=== PATIENT | female | born 1965 | race American Indian/Alaskan Native ===

== ENCOUNTER 2019-10-22 08:00 | Outpatient (CLI) | payer BC, OTHER ==
--- NOTE | 2019-10-22 16:37 | XRAY Report ---
Reason: RIGHT HIP PAIN Procedure Date: 10/22/2019 Accession Number: [id number] / [id number] Procedure: WCP - Hip 1 View RT CPT Code: Final Report FULL RESULT: PROCEDURE: Hip 1 View RT INDICATIONS: RIGHT HIP PAIN TECHNIQUE: 2 views of the hip were acquired. COMPARISON: None FINDINGS: Bones: No fractures or dislocations. No suspicious bony lesions. The visualized pelvic ring appears intact. Mild periarticular osteophyte formation at the bilateral hip joints. Soft tissues: No suspicious soft tissue calcifications or masses. IMPRESSION: Bilateral hip osteoarthritis. No acute fracture. No osseous lesion. If symptoms and/or clinical suspicion for pathology continue, further assessment with repeat plain films, or advanced imaging (e.g., CT, MRI, or bone scan) is recommended for further assessment. Reviewed by: Marcelle Paniagua MD on 10/22/2019 4:36 PM PDT Approved by: Marcelle Paniagua MD on 10/22/2019 4:36 PM PDT Station ID: [id number]
== END 2019-10-22 23:59 | disposition home or self-care (01) ==
LOC: DI.WCP 08:00
PROVIDERS: ATTEND Nurse Practitioner Family
DX: M16.6 Other bilateral secondary osteoarthritis of hip (principal)

== ENCOUNTER 2022-11-04 10:39 | Emergency (ER) | payer OTHER ==
--- NOTE | 2022-11-04 11:30 | ED Physician Documentation ---
PD HPI ABD PAIN - Stated complaint Stated Complaint: ABD PX, NAUSEA, DIARRHEA, - Chief complaint Chief Complaint: Abd Pain - History of Present Illness Quality: Cramping Location: LLQ Improved by: Meds Worsened by: Eating, Palpation Associated symptoms: Nausea, Diarrhea, Constipation Similar symptoms before: Diagnosis - Additional information Additional information: This is a 56-year-old female with a past medical history of recurrent diverticulitis with plan for colon resection in November at [facility]. She presents today with left lower quadrant pain and cramping and bloating along with nausea, diarrhea and constipation. This is similar to prior episodes of di verticulitis. She denies any known fever though felt chilled a few days ago, no cough or URI symptoms, no chest pain or difficulty breathing. She has no dysuria urgency or frequency. She states that her doctor in [facility] where she came from prior to coming up here had given her a prescription for Augmentin to use in the event of a flare of her diverticulitis However she left these medications at home on accident. She has been taking Tylenol, and also takes as needed Zofran which she has at home. Symptoms today feel exactly the same as prior diverticulitis flares. The patient has not had any colon abscesses in the past and has not had any other surgeries on the colon. She has had a Hysterectomy But still has both ovaries, and has her gallbladder and appendix. PD PAST MEDICAL HISTORY - Past Medical History Past Medical History: Yes Cardiovascular: High cholesterol Respiratory: Asthma Neuro: Migraines Endocrine/Autoimmune: None GI: Diverticulitis [employer]INCIPAL: None : None HEENT: None Psych: Depression Musculoskeletal: Osteoarthritis, Rheumatoid arthritis Derm: None - Past Surgical History Past Surgical History: Yes Ortho: Shoulder arthroplasty, Spine surgery, Other /[employer]IPAL: Hysterectomy - Present Medications Home Medications: Ambulatory Orders Medication Instructions Recorded Confirmed Amox/Clav 875/125 [Augmentin 1 tablet PO Q12H 7 Days #14 tablet 11/04/22 875/125 Tab] Escitalopram Oxalate 20 mg PO DAILY 11/04/22 11/04/22 Nabumetone 750 mg PO BID 11/04/22 11/04/22 - Allergies Allergies/Adverse Reactions: Allergies Allergy/AdvReac Type Severity Reaction Status Date / Time codeine AdvReac Nausea Verified 11/04/22 10:48 - Social History Does the pt smoke?: No Smoking Status: Former smoker Does the pt drink ETOH?: Yes Does the pt have substance abuse?: Yes Substance Use and Type: Marijuana - Immunizations Immunizations are current?: Yes PD ED PE NORMAL - Vitals Vital signs reviewed: Yes - General General: Alert and oriented X 3, No acute distress, Well developed/nourished - HEENT HEENT: Atraumatic, Pharynx benign - Cardiac Cardiac: RRR, No murmur - Respiratory Respiratory: No respiratory distress, Clear bilaterally - Abdomen Abdomen: Normal bowel sounds, Soft, Non distended, No organomegaly, Other (Left lower quadrant tenderness without guarding) - Derm Derm: Normal color, Warm and dry - Extremities Extremities: No deformity, No tenderness to palpate, Normal ROM s pain - Neuro Neuro: Alert and oriented X 3 Eye Opening: Spontaneous Motor: Obeys Commands Verbal: Oriented GCS Score: 15 - Psych Psych: Normal mood, Normal affect Results - Vitals Vitals: Vital Signs - 24 hr 11/04/22 10:50 Temperature 36.7 C Heart Rate 79 Respiratory 18 Rate Blood Pressure 137/88 H O2 Saturation 99 Oxygen O2 Source Room air - Labs Labs: Laboratory Tests 11/04/22 11:05 WBC 6.6 RBC 4.04 L Hgb 13.0 Hct 37.2 MCV 92.1 MCH 32.2 H MCHC 34.9 RDW 12.7 Plt Count 282 MPV 8.9 Neut # (Auto) 4.8 Lymph # (Auto) 1.2 L [place] # (Auto) 0.4 Eos # (Auto) 0.1 Baso # (Auto) 0.0 Absolute Nucleated RBC 0.00 Nucleated RBC % 0.0 PD Medical Decision Making - ED course Complexity details: reviewed results, re-evaluated patient, considered differential, d/w patient, d/w family ED course: 56-year-old female with known history of recurrent diverticulitis presents with left lower quadrant pain, nausea, diarrhea and constipation, which is consistent with her prior bouts of diverticulitis. She is nontoxic-appearing with stable vital signs. We obtained labs which are generally reassuring, she does not have leukocytosis at this time. Given patient's history and similar symptoms, I do think appropriate to treat, we will hold off any CT scan at this time as patient labs are stable and she is stable appearing. She was however advised that if she were to worsen, develop a fever, or medication was not helpful that she would need to follow-up. She will be given a course of Augmentin, she already has Zofran at home and pain is controlled with Tylenol however she has several tablets of oxycodone at home leftover from a prior bout of diverticulitis. She was advised to return if she develops a fever, increasing pain, or other new concerns. Departure - Departure Clinical Impression: Diverticulitis of gastrointestinal tract Condition: Good Instructions: ED Diverticulitis Prescriptions: Amox/Clav 875/125 [Augmentin 875/125 Tab] 1 tablet PO Q12H 7 Days #14 tablet Comments: Please take antibiotics as prescribed. You can also take Tylenol, Nausea tablets and pain medicine that you have at home. Adhere to a clear liquid diet today and advance slowly as tolerated but continue a low residue diet. If you develop a fever or worsening symptoms, please return to the ER for reevaluation.
[2022-11-04 11:44] LABS: BASOPHILS % (AUTO) 0.5 %; EOSINOPHILS # (AUTO) 0.1 10^3/uL (0.0-0.7); EOSINOPHILS % (AUTO) 1.1 %; HCT - HEMATOCRIT 37.2 % (37.0-47.0); LYMPHOCYTES # (AUTO) 1.2 10^3/uL (1.5-3.5); LYMPHOCYTES % (AUTO) 18.3 %; MEAN CORPUSCULAR HEMOGLOBIN 32.2 pg (27.0-31.0); MEAN CORPUSCULAR HGB CONC 34.9 g/dL (32.0-36.0); MEAN CORPUSCULAR VOLUME 92.1 fL (81.0-99.0); MEAN PLATELET VOLUME 8.9 fL (7.9-10.8); MONOCYTES # (AUTO) 0.4 10^3/uL (0.0-1.0); MONOCYTES % (AUTO) 6.6 %; NEUTROPHILS # (AUTO) 4.8 10^3/uL (1.5-6.6); PLT - PLATELET COUNT 282 10^3/uL (130-450); RED BLOOD COUNT 4.04 10^6/uL (4.20-5.40); RED CELL DISTRIBUTION WIDTH 12.7 % (12.0-15.0); WHITE BLOOD COUNT 6.6 x10^3/uL (4.8-10.8)
[2022-11-04 11:44] LABS: BILIRUBIN,URINE NEGATIVE (NEGATIVE); GLUCOSE, URINE (UA) NEGATIVE (NEGATIVE); KETONES,URINE (UA) TRACE mg/dL (NEGATIVE); LEUKOCYTE ESTERASE, URINE NEGATIVE (NEGATIVE); NITRITE,URINE NEGATIVE (NEGATIVE); OCCULT BLOOD,URINE NEGATIVE (NEGATIVE); PROTEIN,URINE NEGATIVE (NEGATIVE); UROBILINOGEN,URINE 0.2 (NORMAL) E.U./dL (NORMAL)
[2022-11-04 11:50] LABS: CLARITY,URINE CLEAR (CLEAR)
[2022-11-04 11:52] LABS: ALBUMIN 4.3 g/dL (3.2-5.5); ALBUMIN/GLOBULIN RATIO 1.5 (1.0-2.2); BILIRUBIN,TOTAL 0.7 mg/dL (0.2-1.0); CALCIUM 9.2 mg/dL (8.5-10.3); CREATININE 0.6 mg/dL (0.4-1.0); POTASSIUM 3.3 mmol/L (3.5-5.0); TOTAL PROTEIN 7.2 g/dL (6.7-8.2)
[2022-11-04] MEDS ORDERED: MORPHINE 2 MG/ML CARPUJECT IVP STA (11:54)
[2022-11-04] MEDS ORDERED: ONDANSETRON 4 MG/2 ML VIAL IVP STA (11:55)
[2022-11-04 12:54] VITALS: BP 130/80
== END 2022-11-04 12:46 | disposition home or self-care (01) ==
LOC: ED 10:39
DX: K57.92 Diverticulitis of intestine, part unspecified, without perforation or abscess without bleeding (principal); E78.00 Pure hypercholesterolemia, unspecified; Z87.891 Personal history of nicotine dependence
CPT/HCPCS: 36415; 80053; 81001; 81003; 83690; 85025; 87086; 96374; 96375; 99283